=== PATIENT | female | born 1960 | race Caucasian/White ===

== ENCOUNTER → 2020-06-06 | Outpatient (CLI) | payer BC, SELFPAY ==
[2020-06-06 11:30] LABS: HEMOGLOBIN 15.3 gm/dl (12.3-15.3); RED BLOOD COUNT 4.92 M/UL (4.00-5.10); WHITE BLOOD COUNT 5.3 K/UL (4.5-11.0)
[2020-06-06 12:18] LABS: BUN/CREATININE RATIO 26 (0-10)
== END ==
LOC: LAB 10:50
PROVIDERS: Internal Medicine
DX: E55.9 Vitamin D deficiency, unspecified (principal); E78.5 Hyperlipidemia, unspecified; E53.8 Deficiency of other specified B group vitamins
CPT/HCPCS: 36415; 80048; 80061; 80076; 82607; 84443; 85025

== ENCOUNTER 2020-12-10 15:29 | Emergency (ER) | payer BC ==
[~2020-12-10] VITALS: Ht 160 cm; Wt 74.8 kg
[2020-12-10] MEDS ORDERED: FLONASE 0.05% N16 GM (17:55)
[2020-12-10] MEDS ORDERED: DELSYM30 MG/5 ML PO (17:55)
== END 2020-12-10 18:30 | disposition home or self-care (01) ==
LOC: ER1 15:29
DX: Z23 Encounter for immunization (principal); U07.1 COVID-19; I10 Essential (primary) hypertension
CPT/HCPCS: 71045; 99283; M0243

== ENCOUNTER 2021-11-03 07:30 | Emergency (ER) | payer BC ==
[~2021-11-03 07:30] MED LIST: DELSYM30 MG/5 ML PO; FLONASE 0.05% N16 GM
[2021-11-03 08:18] LABS: HEMOGLOBIN 15.5 gm/dl (12.3-15.3); RED BLOOD COUNT 5.03 M/UL (4.00-5.10); WHITE BLOOD COUNT 6.1 K/UL (4.5-11.0)
[2021-11-03 09:02] LABS: BUN/CREATININE RATIO 27 (0-10)
== END 2021-11-03 12:03 | disposition home or self-care (01) ==
LOC: ER1 07:30
PROVIDERS: Physician Assistant
DX: R07.89 Other chest pain (principal); E78.5 Hyperlipidemia, unspecified; I10 Essential (primary) hypertension; K21.9 Gastro-esophageal reflux disease without esophagitis; Z88.6 Allergy status to analgesic agent
CPT/HCPCS: 71045; 80053; 81001; 82550; 82553; 84484; 85025; 93005; 99285